=== PATIENT | male | born 1980 | race African-American/Black ===

== ENCOUNTER 2016-10-12 14:43 | Emergency (ER) | payer MEDICAID, OTHER ==
[~2016-10-12] VITALS: Ht 188 cm; Wt 73.0 kg
[2016-10-12] MEDS ORDERED: KETOROLAC 60MG/2ML VIAL IM ONE (18:00)
[2016-10-12 18:03] VITALS: BP 153/9
== END 2016-10-12 19:08 | disposition home or self-care (01) ==
LOC: ER 18:02
DX: S16.1XXA Strain of muscle, fascia and tendon at neck level, initial encounter (principal); S46.912A Strain of unspecified muscle, fascia and tendon at shoulder and upper arm level, left arm, initial encounter; S66.911A Strain of unspecified muscle, fascia and tendon at wrist and hand level, right hand, initial encounter; I10 Essential (primary) hypertension; M54.5 Low back pain; V49.59XA Passenger injured in collision with other motor vehicles in traffic accident, initial encounter; Y93.89 Activity, other specified; Y99.8 Other external cause status; Y92.89 Other specified places as the place of occurrence of the external cause
CPT/HCPCS: 71010; 73110; 73590; 96372; 99284; J1885; Z7610

== ENCOUNTER 2025-01-30 04:32 | Emergency (ER) | payer MEDICAID ==
[~2025-01-30] VITALS: Ht 185.4 cm; Wt 67.3 kg
[2025-01-30 04:42] VITALS: O2SAT 100
[2025-01-30] MEDS: LIDOCAINE HCL 1% 20ML VIAL INFIL ONE (05:45)
[2025-01-30] MEDS: TETANUS, DIPHTHERIA, PERTUSSIS VAC/PF 0.5ML (>10YR OLD) IM ONE (06:00)
[2025-01-30] MEDS: ACETAMINOPHEN 325MG TABLET PO ONE (06:01)
[2025-01-30] MEDS ORDERED: TOPUD PO (06:11)
[2025-01-30 06:25] VITALS: BP 123/89; PULSE 76; RESP 18; TEMP 36.8; O2SAT 100
== END 2025-01-30 06:30 | disposition home or self-care (01) ==
LOC: ER 04:32
DX: S01.81XA Laceration without foreign body of other part of head, initial encounter (principal); F10.90 Alcohol use, unspecified, uncomplicated; Z79.899 Other long term (current) drug therapy; X58.XXXA Exposure to other specified factors, initial encounter; Y93.89 Activity, other specified; Y92.89 Other specified places as the place of occurrence of the external cause; Y99.8 Other external cause status
CPT/HCPCS: 70450; 72125; 90715; 12013; 90471; 99285; J2003; Z7610 ×2

== ENCOUNTER 2025-02-07 16:00 | Emergency (ER) | payer MEDICAID, OTHER ==
[~2025-02-07] VITALS: Ht 185.4 cm; Wt 75.0 kg
[~2025-02-07 16:00] MED LIST: TOPUD PO
[2025-02-07 16:12] VITALS: BP 133/87; TEMP 37.2; O2SAT 99
[2025-02-07 16:35] VITALS: PULSE 88; RESP 15; O2SAT 99
== END 2025-02-07 16:36 | disposition home or self-care (01) ==
LOC: ER 16:07
DX: S01.81XD Laceration without foreign body of other part of head, subsequent encounter (principal); F10.90 Alcohol use, unspecified, uncomplicated; Z79.899 Other long term (current) drug therapy; X58.XXXD Exposure to other specified factors, subsequent encounter; Y90.9 Presence of alcohol in blood, level not specified
CPT/HCPCS: 99282